=== PATIENT | female | born 1955 | race Caucasian/White ===

== ENCOUNTER 2019-01-27 06:17 | Inpatient (IN) | payer MEDICARE, MEDICAID ==
[~2019-01-27] VITALS: Ht 170.2 cm; Wt 57.1 kg
[2019-01-27] VITALS (27 sets, daily range): BP systolic 112–175; BP diastolic 50–82
[~2019-01-27 06:17] MED LIST: ALBU18HF2 IH; AMIT100T61 PO; BUSP10TA10 PO; CALC-1197 PO; CHOL100044 PO; CYCL10TA10 PO; CYCL1DRO EACHEYE; DOCU-28 PO; FERR325T39 PO; FLUT16SP2 BOTHNARES; HYDR-4353 PO; LEVO100T PO; MONT10TA21 PO; MSC30T PO; OMEP40CA13 PO; RANI150C4 PO; SUCR1TAB PO; SUMA100T PO; TRAZ-219 PO; VENL150C2 PO; cefazolin/dext.iso 2gm/100 ML IV ONE; famotidine 20mg tablet PO ONE; ringers solution, lacted 1,000 ML IV SCH
[2019-01-27 08:51] LABS: BASOPHILS # (AUTO) 0.1 X10'3 (0-0.2); BASOPHILS % (AUTO) 1.2 % (0-1); EOSINOPHILS # (AUTO) 0.1 X10'3 (0-0.9); EOSINOPHILS % (AUTO) 1.2 % (0-6); LYMPHOCYTES # (AUTO) 1.8 X10'3 (1.1-4.8); LYMPHOCYTES % (AUTO) 40.5 % (21-51); MEAN CORPUSCULAR HEMOGLOBIN 32.1 PG (27.0-31.0); MEAN CORPUSCULAR HGB CONC 33.2 g/dL (33.0-36.5); MEAN CORPUSCULAR VOLUME 96.8 FL (78-98); MEAN PLATELET VOLUME 6.4 FL (7.4-10.4); MONOCYTES # (AUTO) 0.3 X10'3 (0-0.9); MONOCYTES % (AUTO) 7.7 % (2-12); NEUTROPHILS # (AUTO) 2.2 X10'3 (1.8-7.7); NEUTROPHILS % (AUTO) 49.4 % (42-75); PRE OP HEMATOCRIT 39.1 % (35.0-45.0); PRE OP PLATELET COUNT 328 X10'3 (140-440); RED BLOOD COUNT 4.04 X10'6 (4.20-5.60); RED CELL DISTRIBUTION WIDTH 13.5 % (11.5-14.5)
[2019-01-27 09:14] LABS: ALBUMIN 3.4 G/DL (3.4-5.0); ALBUMIN/GLOBULIN RATIO 0.8 (1.1-1.5); ALKALINE PHOSPHATASE 53 IU/L (46-116); BLOOD UREA NITROGEN 19 MG/DL (7-18); BUN/CREATININE RATIO 35.8 (6.6-38.0); CALCIUM 9.3 MG/DL (8.5-10.1); CHLORIDE 107 MMOL/L (99-107); CREATININE 0.53 MG/DL (0.40-0.90); PRE OP ALT 42 U/L (30-65); PRE OP ANION GAP 6 (8-16); PRE OP AST 29 U/L (10-37); PRE OP BILIRUB, TOTAL 0.3 MG/DL (0.0-1.0); PRE OP GLUCOSE 75 MG/DL (70-104); PRE OP POTASSIUM 4.3 MMOL/L (3.4-5.1); PRE OP SODIUM 141 MMOL/L (135-145); TOTAL CARBON DIOXIDE 28.3 MMOL/L (24-32); TOTAL PROTEIN 7.5 G/DL (6.4-8.2); eGFR > 90 ML/MIN
[2019-01-27 09:28] LABS: PRE OP PROTIME 9.9 SECONDS (9.0-12.0)
[2019-01-27 09:44] LABS: HEMOGLOBIN A1C 5.1 % (4.5-6.2)
[2019-01-27] MEDS ORDERED: BUPIVACAINE liposomal/PF 13.3 MG/ML vial IM ONE (09:58)
[2019-01-27] MEDS ORDERED: heparin 10,000 units/1 ML INJ ONE (10:06)
[2019-01-27] MEDS ORDERED: BUPIVAcaine/PF 2.5mg/ml (0.25%) 10ml vial ONE (10:08)
[2019-01-27] MEDS ORDERED: fentaNYL /PF 50mcg/ml 5ml ampule ONE (10:15)
[2019-01-27] MEDS ORDERED: midazolam 2 mg/2 ml injection ONE (10:15)
--- NOTE | 2019-01-27 11:58 | NUR ---
Received from OR via BED, accompanied by Anesthesiologist DR HUBER and report given by Anesthesiologist. PT DROWSY, PAINFUL, ABDOMEN W/FOAM TAPE COVERING INCISION CDI, ZAHEER W/S/S DRAINAGE, CABRERA CATHETER TO GRAVITY DRAINAGE, PAIN MEDICATION GIVEN BY DR ROGERS, SCD'S PLACED, ART LINE TO CM, CXR OBTAINED. Addendum: 01/27/19 at 1235 by Julia Watkins RN Amended: Links added.
[2019-01-27] MEDS ORDERED: ringers solution, lacted 1,000 ML IV SCH (12:08)
[2019-01-27] MEDS ORDERED: ondansetron/PF 4mg/2ml inj IV PRN ×3 (12:10→14:30)
[2019-01-27] MEDS ORDERED: meperidine/PF 25mg/ml syringe IV PRN (12:10)
[2019-01-27] MEDS ORDERED: meperidine/PF 25mg/ml syringe ONE (12:13)
[2019-01-27] MEDS: meperidine/PF 25mg/ml syringe IV PRN ×2 (12:21→13:02)
[2019-01-27] MEDS ORDERED: LIDOcaine 2% (20mg/ml) 5ml vial ONE (12:25)
[2019-01-27] MEDS ORDERED: neostigmine methylsulfate 1 MG/ML 10ml vial ONE (12:25)
[2019-01-27] MEDS ORDERED: dexamethasone sod phosphate 4mg/ml inj. ONE (12:25)
[2019-01-27] MEDS ORDERED: rocuronium 10mg/ml inj IV ONE (12:25)
[2019-01-27] MEDS ORDERED: ondansetron/PF 4mg/2ml inj ONE (12:25)
[2019-01-27] MEDS ORDERED: propofol inj 20 ML IV ONE (12:25)
[2019-01-27] MEDS ORDERED: glycopyrrolate 0.2mg/ml inj ONE (12:25)
[2019-01-27] MEDS: morphine 4 MG/ML inj SYRINge IV PRN ×4 (12:36→12:57)
[2019-01-27] MEDS ORDERED: ketorolac trometh. 30mg/ml inj. IV ONE (13:10)
[2019-01-27] MEDS ORDERED: CADD PCA waste documentation MC SCH (13:15)
[2019-01-27] MEDS ORDERED: naloxone 0.4 mg/ml inj IV PRN ×2 (13:15→14:30)
[2019-01-27] MEDS: HYDROmorphone/NS 1 mg/ml CADD 50 ML IV SCH ×6 (13:18→23:00)
--- NOTE | 2019-01-27 13:54 | NUR ---
Received patient report from Recovery nurse Julia DEE. Awaiting arrival to room 347A.
[2019-01-27] MEDS: potassium CL 20mEq in D5-1/2NS 1,000 ML IV SCH (14:27)
[2019-01-27] MEDS ORDERED: HYDROcodone/acetaminophen 5mg/325mg tablet PO PRN (14:30)
[2019-01-27] MEDS ORDERED: CADD PCA waste documentation MC PRN (14:30)
[2019-01-27] MEDS ORDERED: zolpidem 5mg tablet PO PRN (14:30)
--- NOTE | 2019-01-27 14:38 | NUR ---
Report called to receiving nurse. Transferred via BED, 1 BAG OF PERSONAL Belongings SENT W/PT TO ROOM 347A, PTS SISTER HAS PTS GLASSES, BLL, CALL LIGHT GIVEN, SIDE RAILS UPS X2, RECEIVING RN NOTIFIED OF PTS ARRIVAL. Special Issues communicated to receiving nurse. YES. Addendum: 01/27/19 at 1507 by Julia Watkins RN Amended: Links added.
[2019-01-27] MEDS ORDERED: HYDROmorphone/NS 1 mg/ml CADD 50 ML IV SCH (15:00)
[2019-01-27] MEDS ORDERED: ketorolac tromethamine 15mg/ml inj. IV PRN ×2 (17:25→17:35)
[2019-01-27] MEDS: ketorolac tromethamine 15mg/ml inj. IV PRN (17:45)
[2019-01-27] MEDS: ceFAZolin 1GM/D5W- ADD-VANTAGE 50 ML IV SCH (17:45)
--- NOTE | 2019-01-27 18:30 | NUR ---
Problems reprioritized. Patient report given, questions answered & plan of care reviewed with LUIZ Hinkle.
[2019-01-27] MEDS ORDERED: diphenhydrAMINE 25mg capsule PO PRN (18:50)
[2019-01-27] MEDS: albuterol 2.5 MG/3 ML nebule NEB SCH (19:00)
--- NOTE | 2019-01-27 19:22 | NUR ---
Problems reprioritized. Patient report given, questions answered & plan of care reviewed with Ronny DEE.
[2019-01-27] MEDS ORDERED: albuterol 2.5 MG/3 ML nebule NEB PRN (19:35)
[2019-01-27] MEDS ORDERED: fluticasone nasal spray 16GM bottle NS PRN (19:35)
[2019-01-27] MEDS ORDERED: docusate sod 100mg capsule PO PRN (19:35)
[2019-01-27] MEDS ORDERED: HYDROcodone/acetaminophen 10/325mg tab PO PRN (19:35)
[2019-01-27] MEDS ORDERED: SUMAtriptan 25 MG tablet PO PRN (19:35)
[2019-01-27] MEDS: diphenhydrAMINE 50 mg/ml inj IV PRN (19:47)
[2019-01-27] MEDS: LORazepam 2 mg/ml vial IV PRN (19:56)
[2019-01-27] MEDS: cyclobenzaprine 10mg tablet PO SCH (20:00)
[2019-01-27] MEDS: morphine ER 30mg tablet PO SCH (20:00)
--- NOTE | 2019-01-27 20:30 | NUR ---
right after I received report on this patient who was my last patient to get report on, I received a telephone call from the nursing animal shelter supervisor stating that the patient was complaining about itching and wanted her home medications. (During shift report patient called the nursing station saying her IV machine was going off and she could not stand the noise. Immediately a nurse went in and fixed the problem.(IV was not alarming when I went in to introduce myself to patient)She told her she has been neglected since she got here post op. I went in to introduce myself to the patient, she was itching , very anxious, and restless. She was very upset. I told her that I would be happy to call the surgeon and get a Benadryl order, and go over home medications. Patient keeps complaining about how she feels like people walk in and out and that she has not been treated well. I explained that I am sorry about how she felt about her pervious care, and that I wanted to make things right. I also told her I want to get her itching under control, in order to that I need to call the surgeon. I explained her it takes time to get orders so please be patient and that I would make sure she gets Ativan as well. When I arrived with her Benadryl she was on the phone with surgeon saying how nobody had been in her room to care for her. When she got off the phone I informed her that I had explained that it takes time to get orders and to get them processed, and that there was no need to call the surgeon. She told me that she could not trust what I had said previously because of what had gone on the during the prior shift. I explained that she needs to go through nursing staff on the unit instead of calling the surgeon. Benadryl was given and so was Ativan. Patient is resting calmly in no apparent distress. Post op vitals are still being monitored and are within normal limits.
[2019-01-27] MEDS ORDERED: non-formulary drug (Calcium Carbonate/Vitamin D3 (Calcium + D 600 Mg Tablet) 1 EACH) PO SCH (21:00)
[2019-01-27] MEDS: busPIRone 5mg tablet PO SCH (21:00)
[2019-01-27] MEDS ORDERED: non-formulary drug (Trazodone HCl 1 TAB) PO SCH (21:00)
[2019-01-27] MEDS ORDERED: non-formulary drug (Ranitidine HCl 2 CAP) PO SCH (21:00)
[2019-01-27] MEDS: sucralfate 1 gm tablet PO SCH (21:50)
[2019-01-27] MEDS: traZODone 50mg tablet PO SCH (21:50)
[2019-01-27] MEDS: famotidine 20mg tablet PO SCH (21:51)
[2019-01-27] MEDS: pantoprazole 40mg Tablet.DR PO SCH (21:54)
[2019-01-27] MEDS: vitamin D (cholecalciferol) 1,000 unit tablet PO SCH (21:54)
[2019-01-27] MEDS: amitriptyline 50mg tablet PO SCH (21:55)
[2019-01-27] MEDS: cycloSPORINE 0.05% ophthalmic emulsion EACHEYE SCH (21:56)
[2019-01-28] MEDS: ceFAZolin 1GM/D5W- ADD-VANTAGE 50 ML IV SCH (00:22)
[2019-01-28] MEDS: HYDROmorphone/NS 1 mg/ml CADD 50 ML IV SCH ×12 (01:00→23:00)
[2019-01-28] MEDS: potassium CL 20mEq in D5-1/2NS 1,000 ML IV SCH ×4 (01:03→23:29)
[2019-01-28 01:15] VITALS: BP 128/63
--- NOTE | 2019-01-28 02:45 | NUR ---
Patient is awake and eating jello. I asked her if she was ready to get up and walked and she refused. I educated her on the importance of walking after surgery. She still refused to walk. I let her know that I was going to get her up and walking between 0400 and 0500. She agreed to that.
[2019-01-28] MEDS: ketorolac tromethamine 15mg/ml inj. IV PRN ×4 (03:23→17:45)
--- NOTE | 2019-01-28 04:21 | NUR ---
Administered at 0421, scanned but forgot to save. Yecenia DEE witnessed partial dose waste as well.
[2019-01-28] MEDS: LORazepam 2 mg/ml vial IV PRN ×3 (05:54→21:49)
[2019-01-28 05:57] LABS: BASOPHILS % (AUTO) 0.1 % (0-1); EOSINOPHILS # (AUTO) 0.1 X10'3 (0-0.9); EOSINOPHILS % (AUTO) 1.2 % (0-6); HEMATOCRIT 34.3 % (35.0-45.0); HEMOGLOBIN 11.5 g/dl (12.0-16.0); LYMPHOCYTES % (AUTO) 12.3 % (21-51); MEAN CORPUSCULAR HEMOGLOBIN 32.5 PG (27.0-31.0); MEAN CORPUSCULAR HGB CONC 33.6 g/dL (33.0-36.5); MEAN CORPUSCULAR VOLUME 96.6 FL (78-98); MONOCYTES # (AUTO) 0.2 X10'3 (0-0.9); MONOCYTES % (AUTO) 2.9 % (2-12); NEUTROPHILS # (AUTO) 6.8 X10'3 (1.8-7.7); NEUTROPHILS % (AUTO) 83.5 % (42-75); PLATELET COUNT 305 X10'3 (140-440); RED BLOOD COUNT 3.55 X10'6 (4.20-5.60); RED CELL DISTRIBUTION WIDTH 13.5 % (11.5-14.5); WHITE BLOOD COUNT 8.1 X10'3 (4.5-11.0)
[2019-01-28 06:06] LABS: ALBUMIN 2.5 G/DL (3.4-5.0); ANION GAP 7 (8-16); BLOOD UREA NITROGEN 7 MG/DL (7-18); BUN/CREATININE RATIO 13.5 (6.6-38.0); CALCIUM 6.6 MG/DL (8.5-10.1); CHLORIDE 97 MMOL/L (99-107); CREATININE 0.52 MG/DL (0.40-0.90); GLUCOSE 124 MG/DL (70-104); POTASSIUM 3.2 MMOL/L (3.5-5.1); SODIUM 132 MMOL/L (135-145); TOTAL CARBON DIOXIDE 28.2 MMOL/L (24-32); eGFR > 90 ML/MIN
--- NOTE | 2019-01-28 06:32 | NUR ---
While going over eMAR with on coming nurse the Ativan time showed that I had given the medication. So it did scan after all.
--- NOTE | 2019-01-28 06:34 | NUR ---
Problems reprioritized. Patient report given, questions answered & plan of care reviewed with LUIZ Schneider.
[2019-01-28 07:00] VITALS: BP 106/60
[2019-01-28] MEDS: albuterol 2.5 MG/3 ML nebule NEB SCH ×4 (07:00→19:46)
[2019-01-28] MEDS: morphine ER 30mg tablet PO SCH ×2 (08:00→19:47)
[2019-01-28] MEDS: cyclobenzaprine 10mg tablet PO SCH ×2 (08:00→19:47)
[2019-01-28] MEDS: montelukast 10mg tablet PO SCH (08:51)
[2019-01-28] MEDS: vitamin D (cholecalciferol) 1,000 unit tablet PO SCH ×3 (08:51→19:51)
[2019-01-28] MEDS: pantoprazole 40mg Tablet.DR PO SCH ×2 (08:51→19:48)
[2019-01-28] MEDS: levoTHYROXINE 100mcg tablet PO SCH (08:51)
[2019-01-28] MEDS: busPIRone 5mg tablet PO SCH ×3 (08:51→19:49)
[2019-01-28] MEDS: calcium carbonate/vitamin D3 tablet PO SCH ×3 (08:52→17:45)
[2019-01-28] MEDS: sucralfate 1 gm tablet PO SCH ×2 (08:52→19:47)
[2019-01-28] MEDS: ferrous sulfate 325mg tablet PO SCH (08:52)
[2019-01-28] MEDS: venlafaxine XR 75mg capsule (Q24H) PO SCH (08:52)
[2019-01-28] MEDS: cycloSPORINE 0.05% ophthalmic emulsion EACHEYE SCH ×3 (10:12→20:15)
[2019-01-28 11:00] VITALS: BP 109/50
[2019-01-28] MEDS: diphenhydrAMINE 50 mg/ml inj IV PRN ×2 (11:10→15:10)
[2019-01-28] MEDS ORDERED: potassium Cl 20 mEq SR tablet PO PRN (16:35)
[2019-01-28] MEDS ORDERED: potassium CL 10mEq/100ml bag 100 ML IV PRN (16:35)
[2019-01-28] MEDS ORDERED: magnesium Cl slow-release 64mg tablet PO PRN (16:35)
[2019-01-28] MEDS ORDERED: magnesium 4gm in 100ml NS 100 ML IV PRN (16:35)
[2019-01-28] MEDS: potassium Cl 20 mEq SR tablet PO PRN ×2 (16:47→21:45)
--- NOTE | 2019-01-28 18:35 | NUR ---
Patient in room [facility] 355. I have received report from Jennie DEE and had the opportunity to ask questions and assume patient care.
--- NOTE | 2019-01-28 18:38 | NUR ---
Problems reprioritized. Patient report given, questions answered & plan of care reviewed with PEGGY DEE.
[2019-01-28 19:00] VITALS: BP 124/76
[2019-01-28] MEDS: famotidine 20mg tablet PO SCH (19:50)
[2019-01-28] MEDS: amitriptyline 50mg tablet PO SCH (19:50)
[2019-01-28] MEDS: traZODone 50mg tablet PO SCH (19:50)
--- NOTE | 2019-01-28 19:54 | NUR ---
Patient states she does not like anything and so does not want anything. Addendum: 01/28/19 at 5 by Saskia Nails RN Amended: Links added.
[2019-01-29] VITALS: BP 94/47
[2019-01-29] MEDS: HYDROmorphone/NS 1 mg/ml CADD 50 ML IV SCH ×4 (01:00→07:00)
--- NOTE | 2019-01-29 02:36 | NUR ---
Patient refused to use Addendum: 01/29/19 at 0238 by Saskia Nails RN Amended: Links added.
--- NOTE | 2019-01-29 06:00 | NUR ---
Patient upset with this nurse at beginning of shift as I excused myself from her room when post-op patient wheeled by. Patient is very demanding of time, and tries to control and has no appreciation of the fact that she is not the only patient here. When trying to explain situations and work with her, pt. states that she already knows and that staff are just mean. All nighttime meds given ahead of time in order to appease her.
--- NOTE | 2019-01-29 06:06 | NUR ---
Rivera Santana RN
[2019-01-29 06:19] LABS: BASOPHILS % (AUTO) 0.1 % (0-1); EOSINOPHILS # (AUTO) 0.1 X10'3 (0-0.9); EOSINOPHILS % (AUTO) 2.2 % (0-6); HEMATOCRIT 32.2 % (35.0-45.0); LYMPHOCYTES # (AUTO) 0.8 X10'3 (1.1-4.8); LYMPHOCYTES % (AUTO) 17.2 % (21-51); MEAN CORPUSCULAR HEMOGLOBIN 33.1 PG (27.0-31.0); MEAN CORPUSCULAR HGB CONC 34.1 g/dL (33.0-36.5); MEAN CORPUSCULAR VOLUME 97.2 FL (78-98); MEAN PLATELET VOLUME 6.8 FL (7.4-10.4); MONOCYTES # (AUTO) 0.4 X10'3 (0-0.9); MONOCYTES % (AUTO) 7.7 % (2-12); NEUTROPHILS # (AUTO) 3.4 X10'3 (1.8-7.7); NEUTROPHILS % (AUTO) 72.8 % (42-75); PLATELET COUNT 286 X10'3 (140-440); RED BLOOD COUNT 3.31 X10'6 (4.20-5.60); RED CELL DISTRIBUTION WIDTH 13.5 % (11.5-14.5); WHITE BLOOD COUNT 4.7 X10'3 (4.5-11.0)
[2019-01-29 06:33] LABS: ALBUMIN 2.6 G/DL (3.4-5.0); ANION GAP 5 (8-16); BLOOD UREA NITROGEN 3 MG/DL (7-18); CALCIUM 7.6 MG/DL (8.5-10.1); CHLORIDE 104 MMOL/L (99-107); CREATININE 0.43 MG/DL (0.40-0.90); GLUCOSE 125 MG/DL (70-104); SODIUM 136 MMOL/L (135-145); TOTAL CARBON DIOXIDE 27.5 MMOL/L (24-32); eGFR > 90 ML/MIN
--- NOTE | 2019-01-29 06:55 | NUR ---
Patient in room [facility] 355. I have received report from Saskia DEE and had the opportunity to ask questions and assume patient care.
[2019-01-29 07:00] VITALS: BP 136/76
[2019-01-29] MEDS: albuterol 2.5 MG/3 ML nebule NEB SCH ×4 (07:37→19:53)
[2019-01-29] MEDS: vitamin D (cholecalciferol) 1,000 unit tablet PO SCH ×3 (08:54→20:21)
[2019-01-29] MEDS: ferrous sulfate 325mg tablet PO SCH (08:54)
[2019-01-29] MEDS: pantoprazole 40mg Tablet.DR PO SCH ×2 (08:54→20:19)
[2019-01-29] MEDS: morphine ER 30mg tablet PO SCH ×2 (08:54→20:19)
[2019-01-29] MEDS: venlafaxine XR 75mg capsule (Q24H) PO SCH (08:54)
[2019-01-29] MEDS: montelukast 10mg tablet PO SCH (08:55)
[2019-01-29] MEDS: cyclobenzaprine 10mg tablet PO SCH ×2 (08:55→20:19)
[2019-01-29] MEDS: levoTHYROXINE 100mcg tablet PO SCH (08:55)
[2019-01-29] MEDS: busPIRone 5mg tablet PO SCH ×3 (08:55→20:20)
[2019-01-29] MEDS: calcium carbonate/vitamin D3 tablet PO SCH ×3 (08:55→17:35)
[2019-01-29] MEDS: sucralfate 1 gm tablet PO SCH ×2 (08:55→20:19)
[2019-01-29] MEDS: potassium CL 20mEq in D5-1/2NS 1,000 ML IV SCH ×3 (09:01→22:27)
--- NOTE | 2019-01-29 10:00 | NUR ---
Lulú DEE reported to me and to the charge nurse Shana that patient is complaining of being ignored of her needs. She also told Lulú DEE that she never saw her nurse coming in her room. I've been seeing this patient to give her meds, check the Dilaudid CADD setting, etc. and we have the charge nurse also attending her needs when she called and I am not around. I ordered 2 ice cream from the kitchen per patient request. When I got to her room, patient was talking to me calmly and thanking me for attending her needs
[2019-01-29 11:00] VITALS: BP 123/53
[2019-01-29] MEDS: ketorolac tromethamine 15mg/ml inj. IV PRN (13:52)
--- NOTE | 2019-01-29 15:29 | NUR ---
Patient just had shower. Patient's right IJ catheter was wrapped and also her left upper abdomen surgical incision site plus ZAHEER drain.
--- NOTE | 2019-01-29 18:24 | NUR ---
Patient in room [facility]. I have received report from Max DEE and had the opportunity to ask questions and assume patient care.
[2019-01-29 18:30] VITALS: BP 103/56
--- NOTE | 2019-01-29 18:38 | NUR ---
Problems reprioritized. Patient report given, questions answered & plan of care reviewed with Saskia DEE.
[2019-01-29] MEDS: cycloSPORINE 0.05% ophthalmic emulsion EACHEYE SCH (20:18)
[2019-01-29] MEDS: traZODone 50mg tablet PO SCH (20:20)
[2019-01-29] MEDS: amitriptyline 50mg tablet PO SCH (20:21)
[2019-01-29] MEDS: famotidine 20mg tablet PO SCH (20:21)
[2019-01-29] MEDS: LORazepam 2 mg/ml vial IV PRN (20:31)
[2019-01-30 00:34] VITALS: BP 104/64
[2019-01-30] MEDS: HYDROcodone/acetaminophen 10/325mg tab PO PRN ×3 (04:29→17:50)
[2019-01-30] MEDS: potassium CL 20mEq in D5-1/2NS 1,000 ML IV SCH ×2 (04:30→14:27)
[2019-01-30] MEDS: ketorolac tromethamine 15mg/ml inj. IV PRN (04:49)
--- NOTE | 2019-01-30 05:25 | NUR ---
During the day shift yesterday Addendum: 01/30/19 at 0526 by Saskia Nails RN Amended: Links added.
[2019-01-30 06:22] LABS: BASOPHILS % (AUTO) 0.2 % (0-1); EOSINOPHILS # (AUTO) 0.2 X10'3 (0-0.9); EOSINOPHILS % (AUTO) 5.4 % (0-6); HEMATOCRIT 32.2 % (35.0-45.0); HEMOGLOBIN 10.9 g/dl (12.0-16.0); LYMPHOCYTES # (AUTO) 1.3 X10'3 (1.1-4.8); LYMPHOCYTES % (AUTO) 35.9 % (21-51); MEAN CORPUSCULAR HGB CONC 33.8 g/dL (33.0-36.5); MEAN CORPUSCULAR VOLUME 97.6 FL (78-98); MEAN PLATELET VOLUME 7.1 FL (7.4-10.4); MONOCYTES # (AUTO) 0.2 X10'3 (0-0.9); MONOCYTES % (AUTO) 6.4 % (2-12); NEUTROPHILS # (AUTO) 1.8 X10'3 (1.8-7.7); NEUTROPHILS % (AUTO) 52.1 % (42-75); PLATELET COUNT 308 X10'3 (140-440); RED CELL DISTRIBUTION WIDTH 13.5 % (11.5-14.5); WHITE BLOOD COUNT 3.5 X10'3 (4.5-11.0)
[2019-01-30 06:27] LABS: ALBUMIN 2.6 G/DL (3.4-5.0); ANION GAP 4 (8-16); BLOOD UREA NITROGEN 3 MG/DL (7-18); BUN/CREATININE RATIO 6.4 (6.6-38.0); CALCIUM 7.5 MG/DL (8.5-10.1); CHLORIDE 102 MMOL/L (99-107); CREATININE 0.47 MG/DL (0.40-0.90); GLUCOSE 85 MG/DL (70-104); POTASSIUM 4.3 MMOL/L (3.5-5.1); SODIUM 135 MMOL/L (135-145); TOTAL CARBON DIOXIDE 28.7 MMOL/L (24-32); eGFR > 90 ML/MIN
--- NOTE | 2019-01-30 06:30 | NUR ---
Problems reprioritized. Patient report given, questions answered & plan of care reviewed with Violeta Caro.
[2019-01-30] MEDS: albuterol 2.5 MG/3 ML nebule NEB SCH ×4 (06:59→19:00)
[2019-01-30 08:00] VITALS: BP 162/85
[2019-01-30] MEDS: montelukast 10mg tablet PO SCH (09:11)
[2019-01-30] MEDS: levoTHYROXINE 100mcg tablet PO SCH (09:12)
[2019-01-30] MEDS: ferrous sulfate 325mg tablet PO SCH (09:12)
[2019-01-30] MEDS: pantoprazole 40mg Tablet.DR PO SCH ×2 (09:12→20:10)
[2019-01-30] MEDS: busPIRone 5mg tablet PO SCH ×3 (09:12→21:38)
[2019-01-30] MEDS: calcium carbonate/vitamin D3 tablet PO SCH ×3 (09:12→17:49)
[2019-01-30] MEDS: sucralfate 1 gm tablet PO SCH ×2 (09:12→20:10)
[2019-01-30] MEDS: morphine ER 30mg tablet PO SCH ×2 (09:12→20:10)
[2019-01-30] MEDS: cyclobenzaprine 10mg tablet PO SCH ×2 (09:12→20:10)
[2019-01-30] MEDS: vitamin D (cholecalciferol) 1,000 unit tablet PO SCH ×3 (09:13→21:38)
[2019-01-30] MEDS: LORazepam 2 mg/ml vial IV PRN ×2 (10:03→21:38)
[2019-01-30] MEDS: cycloSPORINE 0.05% ophthalmic emulsion EACHEYE SCH ×2 (10:04→20:10)
[2019-01-30] MEDS: venlafaxine XR 75mg capsule (Q24H) PO SCH (10:04)
[2019-01-30 11:00] VITALS: BP 139/75
--- NOTE | 2019-01-30 16:57 | NUR ---
Nutrition consult: Per consult pt reports only 10" of bowel and has chronic diarrhea. Pt seen at bedside with friend present reports multiple GI surgeries with the first one being in the year 1999 however pt unable to recall when her other bowel surgeries were and states that she only has 10" left of intestines. 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 Pt provided with thorough written and verbal diarrhea and low fiber nutrition therapy educations with a list of fiber content in foods. Pt also provided with written and verbal education for s/s of electrolyte depletion and recipes for electrolyte repletion. Pt presented with moments of understanding education followed by inability to comprehend education. All of patient's questions were answered at this time. RD contact information provided and encouraged pt/friend to reach out if they have any additional questions. Pt reports no diarrhea during hospital stay. LBM 01/29. Pt with multiple food requests that were d/w dietary, see below. Pt denies true allergy to dairy, states she just gets a stomach ache or headache sometimes when eaten. Pt reports some difficulty swallowing solid food at times and is agreeable to [facility], ST consulted. Pt s/p splenectomy currently on full liquid diet with poor PO intake. Will continue to follow. Recommendations: 1) Advance to low residue diet as medically indicated 2) [place] food preferences: 2 coffee, 2 cream, 2 Splenda, oatmeal and soy milk with breakfast; 2 ice cream TID; DISLIKES broth, hot tea, and does not want hot water 3) Wt per rx Addendum: 01/30/19 at [address] Amended: Links added.
[2019-01-30] MEDS: diphenhydrAMINE 50 mg/ml inj IV PRN (17:50)
[2019-01-30 19:00] VITALS: BP 129/50
[2019-01-30] MEDS: amitriptyline 50mg tablet PO SCH (21:38)
[2019-01-30] MEDS: traZODone 50mg tablet PO SCH (21:38)
[2019-01-30] MEDS: famotidine 20mg tablet PO SCH (21:38)
[2019-01-31] VITALS: BP 118/57
[2019-01-31] MEDS: HYDROcodone/acetaminophen 10/325mg tab PO PRN ×2 (03:15→12:08)
[2019-01-31] MEDS: ketorolac tromethamine 15mg/ml inj. IV PRN (05:28)
[2019-01-31 05:57] LABS: BASOPHILS % (AUTO) 0.4 % (0-1); EOSINOPHILS # (AUTO) 0.2 X10'3 (0-0.9); EOSINOPHILS % (AUTO) 5.8 % (0-6); HEMATOCRIT 32.4 % (35.0-45.0); LYMPHOCYTES # (AUTO) 1.4 X10'3 (1.1-4.8); LYMPHOCYTES % (AUTO) 33.7 % (21-51); MEAN CORPUSCULAR HEMOGLOBIN 32.8 PG (27.0-31.0); MEAN CORPUSCULAR HGB CONC 33.8 g/dL (33.0-36.5); MEAN CORPUSCULAR VOLUME 96.9 FL (78-98); MEAN PLATELET VOLUME 6.8 FL (7.4-10.4); MONOCYTES # (AUTO) 0.4 X10'3 (0-0.9); MONOCYTES % (AUTO) 9.3 % (2-12); NEUTROPHILS # (AUTO) 2.1 X10'3 (1.8-7.7); NEUTROPHILS % (AUTO) 50.8 % (42-75); PLATELET COUNT 355 X10'3 (140-440); RED BLOOD COUNT 3.34 X10'6 (4.20-5.60); RED CELL DISTRIBUTION WIDTH 13.2 % (11.5-14.5); WHITE BLOOD COUNT 4.2 X10'3 (4.5-11.0)
--- NOTE | 2019-01-31 06:10 | NUR ---
Patient in room [facility]. I have received report from LUIZ Ortiz and had the opportunity to ask questions and assume patient care.
[2019-01-31 06:30] LABS: ALBUMIN 2.5 G/DL (3.4-5.0); ANION GAP 7 (8-16); BLOOD UREA NITROGEN 4 MG/DL (7-18); CALCIUM 8.5 MG/DL (8.5-10.1); CHLORIDE 103 MMOL/L (99-107); GLUCOSE 88 MG/DL (70-104); POTASSIUM 4.2 MMOL/L (3.5-5.1); SODIUM 139 MMOL/L (135-145); TOTAL CARBON DIOXIDE 28.6 MMOL/L (24-32); eGFR > 90 ML/MIN
--- NOTE | 2019-01-31 06:32 | NUR ---
Problems reprioritized. Patient report given, questions answered & plan of care reviewed with Arnaza Zelaya. Addendum: 01/31/19 at 0632 by Diana Cueto RN Amended: Links added.
[2019-01-31] MEDS: albuterol 2.5 MG/3 ML nebule NEB SCH ×2 (06:48→11:00)
[2019-01-31 07:00] VITALS: BP 123/48
[2019-01-31] MEDS: levoTHYROXINE 100mcg tablet PO SCH (08:24)
[2019-01-31] MEDS: montelukast 10mg tablet PO SCH (08:24)
[2019-01-31] MEDS: busPIRone 5mg tablet PO SCH ×2 (08:25→12:04)
[2019-01-31] MEDS: cyclobenzaprine 10mg tablet PO SCH (08:25)
[2019-01-31] MEDS: morphine ER 30mg tablet PO SCH (08:25)
[2019-01-31] MEDS: venlafaxine XR 75mg capsule (Q24H) PO SCH (08:25)
[2019-01-31] MEDS: pantoprazole 40mg Tablet.DR PO SCH (08:25)
[2019-01-31] MEDS: sucralfate 1 gm tablet PO SCH (08:25)
[2019-01-31] MEDS: calcium carbonate/vitamin D3 tablet PO SCH ×2 (08:25→12:04)
[2019-01-31] MEDS: ferrous sulfate 325mg tablet PO SCH (08:25)
[2019-01-31] MEDS: cycloSPORINE 0.05% ophthalmic emulsion EACHEYE SCH (08:25)
[2019-01-31] MEDS: vitamin D (cholecalciferol) 1,000 unit tablet PO SCH ×2 (08:25→12:04)
[2019-01-31 11:00] VITALS: BP 94/52
--- NOTE | 2019-01-31 15:21 | NUR ---
Patient discharge home via family and taken from unit via wheelchair with x1 staff. Patient alert, oriented and in no apparent distress at time of discharge. PIV removed with cannula intact. Patient took all belongings with her including discharge instructions. Patient was given time for questions and answers and after, stated an understanding of the instructions. Patient is going to make a follow up appointment with Dr. Draper. No new prescriptions written for patient.
== END 2019-01-31 15:15 | disposition home or self-care (01) | DRG 799 ==
LOC: PAS IN 06:17 → EDSTATUS 09:15 → SUR 3N 17:25
PROVIDERS: ADMIT Surgery; ATTEND Surgery
PROC: 02HV33Z Insertion of Infusion Device into Superior Vena Cava, Percutaneous Approach (ICD-10-PCS; 2019-01-27)
PROC: 3E0T3BZ Introduction of Anesthetic Agent into Peripheral Nerves and Plexi, Percutaneous Approach (ICD-10-PCS; 2019-01-27)
PROC: 07TP0ZZ Resection of Spleen, Open Approach (ICD-10-PCS; principal; 2019-01-27 10:15)
DX: D73.4 Cyst of spleen (principal); E43 Unspecified severe protein-calorie malnutrition; Z68.1 Body mass index [BMI] 19.9 or less, adult; L29.9 Pruritus, unspecified; I10 Essential (primary) hypertension; J45.909 Unspecified asthma, uncomplicated; M79.7 Fibromyalgia; F41.9 Anxiety disorder, unspecified; G89.29 Other chronic pain; Z90.49 Acquired absence of other specified parts of digestive tract; Z90.710 Acquired absence of both cervix and uterus
CPT/HCPCS: 36415; 71045; 76937; 80048; 80053; 83036; 84443; 85025; 85610; 85730; 88305; 88341; 88342; 93005; 94640; 94760; A4618; A6449; A7000; C1758; C9290; G0378; J0690; J1100; J1170; J1200; J1644; J1885; J2001; J2060; J2175; J2250; J2270; J2405; J2704; J2710; J3010; J3480; J3490; J7040; J7120

== ENCOUNTER 2019-04-03 07:27 | Inpatient (IN) | payer MEDICARE, MEDICAID ==
[2019-03-27 11:06] LABS: BASOPHILS # (AUTO) 0.1 X10'3 (0-0.2); EOSINOPHILS % (AUTO) 0.2 % (0-6); LYMPHOCYTES # (AUTO) 1.5 X10'3 (1.1-4.8); MEAN CORPUSCULAR HEMOGLOBIN 33.1 PG (27.0-31.0); MEAN CORPUSCULAR HGB CONC 33.7 g/dL (33.0-36.5); MEAN CORPUSCULAR VOLUME 98.1 FL (78-98); MEAN PLATELET VOLUME 6.6 FL (7.4-10.4); MONOCYTES # (AUTO) 0.7 X10'3 (0-0.9); MONOCYTES % (AUTO) 8.6 % (2-12); NEUTROPHILS # (AUTO) 5.7 X10'3 (1.8-7.7); NEUTROPHILS % (AUTO) 71.2 % (42-75); PRE OP HEMATOCRIT 38.7 % (35.0-45.0); PRE OP PLATELET COUNT 474 X10'3 (140-440); RED BLOOD COUNT 3.94 X10'6 (4.20-5.60); RED CELL DISTRIBUTION WIDTH 13.6 % (11.5-14.5)
[2019-03-27 11:19] LABS: PRE OP INR 0.9 INR
[2019-03-27 11:29] LABS: ALBUMIN 3.6 G/DL (3.4-5.0); ALBUMIN/GLOBULIN RATIO 0.8 (1.1-1.5); ALKALINE PHOSPHATASE 75 IU/L (46-116); BLOOD UREA NITROGEN 11 MG/DL (7-18); BUN/CREATININE RATIO 15.5 (6.6-38.0); CALCIUM 8.6 MG/DL (8.5-10.1); CHLORIDE 102 MMOL/L (99-107); CREATININE 0.71 MG/DL (0.40-0.90); PRE OP ALT 35 U/L (30-65); PRE OP ANION GAP 7 (8-16); PRE OP AST 25 U/L (10-37); PRE OP BILIRUB, TOTAL 0.2 MG/DL (0.0-1.0); PRE OP GLUCOSE 88 MG/DL (70-104); PRE OP POTASSIUM 4.3 MMOL/L (3.4-5.1); PRE OP SODIUM 137 MMOL/L (135-145); TOTAL CARBON DIOXIDE 27.6 MMOL/L (24-32); TOTAL PROTEIN 8.3 G/DL (6.4-8.2); eGFR 83 ML/MIN
--- NOTE | 2019-04-02 09:07 | NUR ---
CALLED AND SPOKE WITH PT TO REMIND HER OF HER SURGERY TIME FOR 04-03-19. PT STATED SHE DIDN'T UNDERSTAND WHY SHE HAD TO SHOWER SO MANY TIMES AND APPLY MUPIROCIN OINTMENT IN HER NARES "I'VE NEVER HAD TO DO THIS BEFORE" EXPLAINED TO PT RE: INFECTION PREVENTION PROTOCOL PER ORTHOPEDIC SURGEON'S REQUEST AND THAT IT WAS IN HER BEST INTEREST PT STATED SHE WOULD COMPLY BUT SHE IS UNABLE TO WASH AND REACH HER BACK COMPLETLY. TOLD PT TO DO THE BEST SHE COULD. ALL OTHER QUESTIONS ANSWERED.
[2019-04-03] VITALS (24 sets, daily range): BP systolic 97–144; BP diastolic 36–74
[~2019-04-03] VITALS: Ht 170.2 cm; Wt 59.0 kg
[~2019-04-03 07:27] MED LIST changes: +ACYC-202 PO; +BECL7.3A INH; -CALC-1197 PO; +CALC-910 PO; -CHOL100044 PO; -CYCL1DRO EACHEYE; +DICL100G15 TOP; +DIPH25CA83 PO; +ELET20TA PO; -FERR325T39 PO; +LACT10SO PO; -RANI150C4 PO; -SUMA100T PO; +VANCOMYCIN INJ 1000 MG in NORMAL SALINE 250ml IV.SOLN IV ONE; +albuterol 2.5 MG/3 ML nebule NEB ONE; -cefazolin/dext.iso 2gm/100 ML IV ONE; +cefazolin/dext.iso 2gm/50ml 50 ML IV ONE; +tranexamic acid inj. 600 MG in normal saline 100ml IV soln 100 ML IV ONE
--- NOTE | 2019-04-03 08:40 | NUR ---
RUDY 65. PT ASYMPTOMATIC. DR CUEVAS NOTIFIED, INSTRUCTED TO GIVE PT ONE CUP APPLE JUICE. SEE RUDY RESULTS FOR POST TESTING Addendum: 04/03/19 at 0945 by Emely Forrest RN Amended: Links added.
--- NOTE | 2019-04-03 10:07 | NUR ---
I have reviewed and agree with all medications administered and interventions performed by RAIL SWITCH OPERATOR Student Moy Chavez.
[2019-04-03] MEDS ORDERED: ROPIVAcaine 0.5% (5mg/ml) 30ml vial ONE ×2 (11:58→12:25)
[2019-04-03] MEDS ORDERED: ketorolac trometh. 30mg/ml inj. ONE (11:58)
[2019-04-03] MEDS ORDERED: sevoflurane 250ml liquid IH ONE (12:21)
[2019-04-03] MEDS ORDERED: MIDAZolam 5mg/5ml vial ONE (12:23)
[2019-04-03] MEDS ORDERED: fentaNYL/PF 50MCG/1 ML 2ML syringe ONE (12:23)
[2019-04-03] MEDS ORDERED: ringers solution, lacted 1,000 ML IV SCH (13:33)
[2019-04-03] MEDS ORDERED: proCHLORperazine 10 MG/2 ml inj IV PRN (13:35)
[2019-04-03] MEDS ORDERED: morphine 4 MG/ML inj SYRINge IV PRN ×2 (13:35)
[2019-04-03] MEDS ORDERED: ondansetron/PF 4mg/2ml inj IV PRN ×2 (13:35→15:40)
[2019-04-03] MEDS ORDERED: meperidine/PF 25mg/ml syringe IV PRN ×3 (13:35)
[2019-04-03] MEDS ORDERED: propofol inj 20 ML IV ONE (14:43)
--- NOTE | 2019-04-03 15:32 | NUR ---
Received from OR via ortho bed, accompanied by Anesthesiologist FAITH and report given by Anesthesiolgist. Pt sleepy but responsive to questions, VS stable O2 mask at 10L, 20G right forearm 100cc/hr, left shoulder in sling, jacky and ON-Q dressings with ice pack present. Good cap refill to fingers, patient states she is not in pain besides sore throat. SCDs placed on patient.
[2019-04-03] MEDS ORDERED: diphenhydrAMINE 25mg capsule PO PRN (15:40)
[2019-04-03] MEDS ORDERED: HYDROcodone/acetaminophen 10/325mg tab PO PRN (15:40)
[2019-04-03] MEDS ORDERED: acyclovir 200 MG capsule PO PRN (15:40)
[2019-04-03] MEDS ORDERED: docusate sod 100mg capsule PO PRN (15:40)
[2019-04-03] MEDS ORDERED: acetaminophen 325mg tablet PO PRN (15:40)
[2019-04-03] MEDS ORDERED: magnesium hydroxide 30ml (MOM) UD suspension PO PRN (15:40)
[2019-04-03] MEDS ORDERED: bisacodyl 10mg suppository rectal RC PRN (15:40)
[2019-04-03] MEDS ORDERED: HYDROmorphone inj. 0.5 MG/0.5 ML DISP.SYRIN IV PRN (15:40)
[2019-04-03] MEDS ORDERED: oxyCODONE IR 5mg (immed. release) tablet PO PRN (15:40)
[2019-04-03] MEDS ORDERED: SUMAtriptan 25 MG tablet PO PRN (16:05)
[2019-04-03] MEDS: ROPIVAcaine 0.2%/PF PUMP/bolus 550 ML INTERSCALE SCH (16:08)
--- NOTE | 2019-04-03 16:25 | NUR ---
Patient in room PAS IN 900. I have received report from Renetta DEE and had the opportunity to ask questions and assume patient care.
--- NOTE | 2019-04-03 16:32 | NUR ---
Report called to receiving nurse LUIZ Corona. Transferred via Belongings sent with patient on bed, glasses in chart. Special Issues communicated to receiving nurse. Pt settled into room, BLL, call light within reach, chart at nurses desk. Still no pain to shoulder but very sore throat, ice chips given. Cool pack remains present to left shoulder. VS stable.
--- NOTE | 2019-04-03 16:40 | NUR ---
Requested bedside RN Cj to check blood sugar per phonecall from Dr Dove.
[2019-04-03] MEDS: ceFAZolin 1GM/D5W- ADD-VANTAGE 50 ML IV SCH ×2 (16:54→23:59)
[2019-04-03] MEDS: potassium cl 20mEq in 1/2 NS 1,000 ML IV SCH ×2 (16:54→23:37)
--- NOTE | 2019-04-03 18:29 | NUR ---
Problems reprioritized. Patient report given, questions answered & plan of care reviewed with Mao RN.
[2019-04-03] MEDS ORDERED: tranexamic acid inj. 600 MG in normal saline 100ml IV soln 100 ML IV ONE (18:40)
[2019-04-03] MEDS ORDERED: vancomycin/NS 1 GM ADD-VANTAGE 250 ML IV SCH (20:00)
[2019-04-03] MEDS: sucralfate 1 gm tablet PO SCH (20:00)
[2019-04-03] MEDS: budesonide 0.5mg/2ml UD nebule IH SCH (20:06)
[2019-04-03] MEDS: morphine ER 30mg tablet PO SCH (20:21)
[2019-04-03] MEDS: acetaminophen 325mg tablet PO SCH (20:21)
[2019-04-03] MEDS: cyclobenzaprine 10mg tablet PO SCH (20:21)
[2019-04-03] MEDS: sennosides 8.6mg tablet PO SCH (20:22)
[2019-04-03] MEDS: diphenhydrAMINE 25mg capsule PO PRN (20:24)
[2019-04-03] MEDS: busPIRone 5mg tablet PO SCH (20:25)
[2019-04-03] MEDS: lactulose 20gm/30ml cup PO SCH (20:25)
[2019-04-03] MEDS: amitriptyline 50mg tablet PO SCH (20:29)
[2019-04-03] MEDS: traZODone 50mg tablet PO PRN (21:29)
[2019-04-04 02:00] VITALS: BP 112/53
[2019-04-04] MEDS: HYDROmorphone 1 mg/ml syringe IV PRN ×2 (02:24→13:37)
[2019-04-04] MEDS: acetaminophen 325mg tablet PO SCH ×4 (02:30→19:06)
[2019-04-04] MEDS: diphenhydrAMINE 25mg capsule PO PRN ×3 (02:42→19:35)
[2019-04-04] MEDS: ROPIVAcaine 0.2%/PF PUMP/bolus 550 ML INTERSCALE SCH (03:04)
[2019-04-04] MEDS: oxyCODONE IR 5mg (immed. release) tablet PO PRN ×6 (04:39→23:33)
[2019-04-04 06:00] VITALS: BP 104/49
--- NOTE | 2019-04-04 06:09 | NUR ---
Problems reprioritized. Patient report given, questions answered & plan of care reviewed with Cj DEE.
--- NOTE | 2019-04-04 06:27 | NUR ---
Patient in room ORTHO 4016. I have received report from Mao DEE and had the opportunity to ask questions and assume patient care.
[2019-04-04 06:28] LABS: BASOPHILS % (AUTO) 0.3 % (0-1); EOSINOPHILS # (AUTO) 0.1 X10'3 (0-0.9); EOSINOPHILS % (AUTO) 1.9 % (0-6); HEMATOCRIT 31.6 % (35.0-45.0); HEMOGLOBIN 10.9 g/dl (12.0-16.0); LYMPHOCYTES # (AUTO) 1.1 X10'3 (1.1-4.8); LYMPHOCYTES % (AUTO) 14.8 % (21-51); MEAN CORPUSCULAR HEMOGLOBIN 33.4 PG (27.0-31.0); MEAN CORPUSCULAR HGB CONC 34.4 g/dL (33.0-36.5); MEAN CORPUSCULAR VOLUME 97.3 FL (78-98); MEAN PLATELET VOLUME 6.6 FL (7.4-10.4); MONOCYTES # (AUTO) 0.3 X10'3 (0-0.9); MONOCYTES % (AUTO) 4.1 % (2-12); NEUTROPHILS # (AUTO) 5.7 X10'3 (1.8-7.7); NEUTROPHILS % (AUTO) 78.9 % (42-75); PLATELET COUNT 324 X10'3 (140-440); RED BLOOD COUNT 3.25 X10'6 (4.20-5.60); RED CELL DISTRIBUTION WIDTH 13.5 % (11.5-14.5); WHITE BLOOD COUNT 7.2 X10'3 (4.5-11.0)
[2019-04-04 06:32] LABS: ANION GAP 8 (8-16); CHLORIDE 106 MMOL/L (99-107); POTASSIUM 3.5 MMOL/L (3.5-5.1); SODIUM 139 MMOL/L (135-145); TOTAL CARBON DIOXIDE 25.4 MMOL/L (24-32)
[2019-04-04] MEDS: levoTHYROXINE 100mcg tablet PO SCH (07:30)
[2019-04-04] MEDS: pantoprazole 40mg Tablet.DR PO SCH (07:30)
[2019-04-04] MEDS: sucralfate 1 gm tablet PO SCH ×2 (07:30→19:05)
[2019-04-04] MEDS: cyclobenzaprine 10mg tablet PO SCH ×2 (07:30→19:05)
[2019-04-04] MEDS: lactulose 20gm/30ml cup PO SCH ×3 (07:31→19:31)
[2019-04-04] MEDS: montelukast 10mg tablet PO SCH (07:31)
[2019-04-04] MEDS: venlafaxine XR 75mg capsule (Q24H) PO SCH (07:31)
[2019-04-04] MEDS: busPIRone 5mg tablet PO SCH ×3 (07:31→19:35)
[2019-04-04] MEDS: morphine ER 30mg tablet PO SCH ×2 (07:31→19:06)
[2019-04-04] MEDS: fluticasone nasal spray 16GM bottle NS SCH (07:32)
[2019-04-04] MEDS: potassium cl 20mEq in 1/2 NS 1,000 ML IV SCH ×3 (07:32→19:43)
[2019-04-04] MEDS: aspirin 325mg tablet PO SCH (08:03)
[2019-04-04 10:00] VITALS: BP 99/46
[2019-04-04] MEDS: budesonide 0.5mg/2ml UD nebule IH SCH ×2 (10:20→19:18)
[2019-04-04] MEDS: albuterol 2.5 MG/3 ML nebule NEB PRN (10:20)
[2019-04-04 14:00] VITALS: BP 122/56
--- NOTE | 2019-04-04 14:49 | NUR ---
Pt s/p revision left TSA currently on a regular diet documented with 25% PO intake not meeting nutrient needs. Pt seen at bedside provided with written and verbal protein education with alternative write in menu to provide additional food options. Pt reports poor PO intake r/t not liking the food. Food preferences obtained, pt states she doesn't eat meat or fish and requests vegetarian diet however states that eggs are okay. Pt reports difficulty swallowing d/t sore throat and agrees to soft to chew foods. Pt requests 2 sorbet TID, cream of wheat or oatmeal with coffee at all breakfasts, and requests no butter, ice tea, rice, pudding, or gravy. All food preferences were d/w dietary and RN informed about patient requesting mostly vegetarian diet with the exception of eggs. Pt provided with RD contact information. Will continue to follow. Addendum: 04/04/19 at [address] Amended: Links added.
[2019-04-04 18:00] VITALS: BP 105/61
--- NOTE | 2019-04-04 18:09 | NUR ---
Problems reprioritized. Patient report given, questions answered & plan of care reviewed with luba DEE.
[2019-04-04] MEDS: sennosides 8.6mg tablet PO SCH (19:06)
--- NOTE | 2019-04-04 19:10 | NUR ---
Patient had loose stool so I held the Senokot that was ordered.
[2019-04-04] MEDS: amitriptyline 50mg tablet PO SCH (19:35)
--- NOTE | 2019-04-04 20:47 | NUR ---
placed hat in bathroom to measure urine. pt refused to use. removed. SL IVF b/c patient drank 2 pitchers of water. positioned for comfort. pt c/o pain 10/10 while eating ice cream and carrying on conversation. pain routine given to pt. and written on board when next dose due. verbalized understanding. pt allowed ice pack on outside of arm only no pressure on arm
[2019-04-04] MEDS: traZODone 50mg tablet PO PRN (23:32)
[2019-04-04 23:35] VITALS: BP 116/53
[2019-04-05] MEDS: acetaminophen 325mg tablet PO SCH ×3 (02:00→14:36)
[2019-04-05] MEDS: oxyCODONE IR 5mg (immed. release) tablet PO PRN ×5 (05:24→21:10)
[2019-04-05 06:00] VITALS: BP 116/51
--- NOTE | 2019-04-05 06:07 | NUR ---
reported to days. noted pt received pre-pt pain meds.
--- NOTE | 2019-04-05 06:10 | NUR ---
received report from angelica hendricks
[2019-04-05] MEDS: potassium cl 20mEq in 1/2 NS 1,000 ML IV SCH (07:37)
[2019-04-05] MEDS: levoTHYROXINE 100mcg tablet PO SCH (08:11)
[2019-04-05] MEDS: aspirin 325mg tablet PO SCH (08:11)
[2019-04-05] MEDS: pantoprazole 40mg Tablet.DR PO SCH (08:11)
[2019-04-05] MEDS: montelukast 10mg tablet PO SCH (08:12)
[2019-04-05] MEDS: cyclobenzaprine 10mg tablet PO SCH ×2 (08:12→20:09)
[2019-04-05] MEDS: morphine ER 30mg tablet PO SCH ×2 (08:12→20:08)
[2019-04-05] MEDS: venlafaxine XR 75mg capsule (Q24H) PO SCH (08:13)
[2019-04-05] MEDS: busPIRone 5mg tablet PO SCH ×3 (08:13→20:10)
[2019-04-05] MEDS: fluticasone nasal spray 16GM bottle NS SCH (08:15)
[2019-04-05] MEDS: lactulose 20gm/30ml cup PO SCH ×3 (08:16→20:09)
[2019-04-05] MEDS: albuterol 2.5 MG/3 ML nebule NEB PRN (08:27)
[2019-04-05] MEDS: budesonide 0.5mg/2ml UD nebule IH SCH ×2 (08:27→20:25)
[2019-04-05] MEDS: sucralfate 1 gm tablet PO SCH ×2 (08:34→20:09)
[2019-04-05 10:00] VITALS: BP 107/41
[2019-04-05] MEDS: ROPIVAcaine 0.2%/PF PUMP/bolus 550 ML INTERSCALE SCH (13:15)
[2019-04-05] MEDS ORDERED: acetaminophen 325mg tablet PO PRN (15:40)
[2019-04-05] MEDS: diphenhydrAMINE 25mg capsule PO PRN (17:02)
[2019-04-05 18:00] VITALS: BP 113/70
--- NOTE | 2019-04-05 18:11 | NUR ---
gave report to august,
[2019-04-05] MEDS: amitriptyline 50mg tablet PO SCH (20:09)
[2019-04-05] MEDS: sennosides 8.6mg tablet PO SCH (20:09)
[2019-04-05 22:00] VITALS: BP 118/47
[2019-04-05] MEDS: traZODone 50mg tablet PO PRN (23:06)
[2019-04-06] MEDS: oxyCODONE IR 5mg (immed. release) tablet PO PRN ×3 (05:23→13:05)
[2019-04-06 06:00] VITALS: BP 101/46
--- NOTE | 2019-04-06 06:04 | NUR ---
received report from dejuan, rn
[2019-04-06 06:45] VITALS: BP 101/46
[2019-04-06 06:45] LABS: BASOPHILS % (AUTO) 0.4 % (0-1); EOSINOPHILS # (AUTO) 0.3 X10'3 (0-0.9); EOSINOPHILS % (AUTO) 6.1 % (0-6); HEMOGLOBIN 10.5 g/dl (12.0-16.0); LYMPHOCYTES % (AUTO) 34.4 % (21-51); MEAN CORPUSCULAR HEMOGLOBIN 33.3 PG (27.0-31.0); MEAN CORPUSCULAR HGB CONC 33.9 g/dL (33.0-36.5); MEAN CORPUSCULAR VOLUME 98.2 FL (78-98); MEAN PLATELET VOLUME 6.9 FL (7.4-10.4); MONOCYTES # (AUTO) 0.4 X10'3 (0-0.9); MONOCYTES % (AUTO) 7.7 % (2-12); NEUTROPHILS # (AUTO) 2.9 X10'3 (1.8-7.7); NEUTROPHILS % (AUTO) 51.4 % (42-75); PLATELET COUNT 284 X10'3 (140-440); RED BLOOD COUNT 3.15 X10'6 (4.20-5.60); RED CELL DISTRIBUTION WIDTH 13.4 % (11.5-14.5); WHITE BLOOD COUNT 5.7 X10'3 (4.5-11.0)
[2019-04-06] MEDS: budesonide 0.5mg/2ml UD nebule IH SCH ×2 (08:00→08:14)
[2019-04-06] MEDS: pantoprazole 40mg Tablet.DR PO SCH (08:26)
[2019-04-06] MEDS: fluticasone nasal spray 16GM bottle NS SCH (08:26)
[2019-04-06] MEDS: busPIRone 5mg tablet PO SCH ×2 (08:26→13:05)
[2019-04-06] MEDS: lactulose 20gm/30ml cup PO SCH ×2 (08:27→13:06)
[2019-04-06] MEDS: venlafaxine XR 75mg capsule (Q24H) PO SCH (08:27)
[2019-04-06] MEDS: aspirin 325mg tablet PO SCH (08:27)
[2019-04-06] MEDS: sucralfate 1 gm tablet PO SCH (08:27)
[2019-04-06] MEDS: morphine ER 30mg tablet PO SCH (08:27)
[2019-04-06] MEDS: cyclobenzaprine 10mg tablet PO SCH (08:27)
[2019-04-06] MEDS: montelukast 10mg tablet PO SCH (08:27)
[2019-04-06] MEDS: levoTHYROXINE 100mcg tablet PO SCH (08:27)
--- NOTE | 2019-04-06 08:28 | NUR ---
computer turned off in the middle of med pass and unable to recover barcodes that had been scanned, checked meds prior to admin
[2019-04-06 10:15] VITALS: BP 111/52
[2019-04-06] MEDS ORDERED: ASPI-1 PO (10:48)
--- NOTE | 2019-04-06 14:31 | NUR ---
pt d/c with instructions, understanding of instructions, and w/all belongings in wheelchair accompanied by daughter to private vehicle to go home and f/u w/dr. turcios, pt has appointment already scheduled
== END 2019-04-06 14:20 | disposition home health service (06) | DRG 483 ==
LOC: PAS IN 07:27 → EDSTATUS 10:30 → ORTHO 4S 16:34
PROVIDERS: ADMIT Orthopaedic Surgery; ATTEND Orthopaedic Surgery
PROC: 0RPK0JZ Removal of Synthetic Substitute from Left Shoulder Joint, Open Approach (ICD-10-PCS; 2019-04-03)
PROC: 3E0T3BZ Introduction of Anesthetic Agent into Peripheral Nerves and Plexi, Percutaneous Approach (ICD-10-PCS; 2019-04-03)
PROC: 0RRK0JZ Replacement of Left Shoulder Joint with Synthetic Substitute, Open Approach (ICD-10-PCS; principal; 2019-04-03 12:21)
DX: T84.098A Other mechanical complication of other internal joint prosthesis, initial encounter (principal); D62 Acute posthemorrhagic anemia; M75.122 Complete rotator cuff tear or rupture of left shoulder, not specified as traumatic; M25.512 Pain in left shoulder; M75.02 Adhesive capsulitis of left shoulder; F32.9 Major depressive disorder, single episode, unspecified; K21.9 Gastro-esophageal reflux disease without esophagitis; G43.909 Migraine, unspecified, not intractable, without status migrainosus; F41.9 Anxiety disorder, unspecified; Z96.612 Presence of left artificial shoulder joint; G89.29 Other chronic pain; E03.9 Hypothyroidism, unspecified; J45.909 Unspecified asthma, uncomplicated; Y79.2 Prosthetic and other implants, materials and accessory orthopedic devices associated with adverse incidents; Y92.89 Other specified places as the place of occurrence of the external cause; Z88.8 Allergy status to other drugs, medicaments and biological substances; Z90.710 Acquired absence of both cervix and uterus; Z79.899 Other long term (current) drug therapy; Z79.84 Long term (current) use of oral hypoglycemic drugs
CPT/HCPCS: 36415; 80051; 80053; 82948; 84443; 85025; 85610; 85730; 87081; 94640; 94760; 97110; 97112; 97116; 97161; 97530; A4565; A4618; A7000; C1776; G0378; J0690; J1170; J1885; J2250; J2704; J2795; J3010; J3370; J3480; J7120; J7626; Q0163

== ENCOUNTER 2022-07-16 09:20 | Emergency (ER) | payer MEDICARE, MEDICAID ==
[~2022-07-16] VITALS: Ht 170.2 cm; Wt 61.4 kg
[~2022-07-16 09:20] MED LIST changes: +ACYC-128 PO; -ACYC-202 PO; +ASPI-1 PO; +CYCL-524 PO; -CYCL10TA10 PO; -LACT10SO PO; +LACT10SO3 PO; -OMEP40CA13 PO; +OMEP40CA21 PO; -TRAZ-219 PO; +TRAZ-256 PO; -VANCOMYCIN INJ 1000 MG in NORMAL SALINE 250ml IV.SOLN IV ONE; -VENL150C2 PO; +VENL150C4 PO; -albuterol 2.5 MG/3 ML nebule NEB ONE; -cefazolin/dext.iso 2gm/50ml 50 ML IV ONE; -famotidine 20mg tablet PO ONE; -ringers solution, lacted 1,000 ML IV SCH; -tranexamic acid inj. 600 MG in normal saline 100ml IV soln 100 ML IV ONE
[2022-07-16 10:03] VITALS: BP 125/56
--- NOTE | 2022-07-16 12:22 | NUR ---
Patient refuses to have bed railing up despite her ongoing dizziness. She states, "I promise I wont get up".
[2022-07-16] MEDS ORDERED: acetaminophen 325mg tablet PO ONE (13:15)
== END 2022-07-16 14:43 | disposition home or self-care (01) ==
LOC: ER 09:23
DX: S06.0X0A Concussion without loss of consciousness, initial encounter (principal); M54.2 Cervicalgia; R07.89 Other chest pain; J45.909 Unspecified asthma, uncomplicated; K21.9 Gastro-esophageal reflux disease without esophagitis; G89.29 Other chronic pain; M54.50 Low back pain, unspecified; Z88.8 Allergy status to other drugs, medicaments and biological substances; Z91.010 Allergy to peanuts; Z91.018 Allergy to other foods; Z90.710 Acquired absence of both cervix and uterus; Z56.0 Unemployment, unspecified; W01.0XXA Fall on same level from slipping, tripping and stumbling without subsequent striking against object, initial encounter; Y93.89 Activity, other specified; Y92.89 Other specified places as the place of occurrence of the external cause; Y99.8 Other external cause status
CPT/HCPCS: 70450; 71045; 72125; 99284

== ENCOUNTER 2024-03-31 08:50 | Outpatient (CLI) | payer MEDICARE, MEDICAID ==
[2024-03-24 09:30] LABS: ALBUMIN 3.1 G/DL (3.4-5.0); BLOOD UREA NITROGEN 28 MG/DL (7-18); BUN/CREATININE RATIO 29.5 (10.0-20.0); CALCIUM 9.3 MG/DL (8.5-10.1); CREATININE 0.95 MG/DL (0.40-0.90); GLUCOSE 96 MG/DL (70-104); TOTAL CARBON DIOXIDE 24.4 MMOL/L (24-32); eGFR 58 ML/MIN
[2024-03-24 10:17] LABS: ANION GAP 8 (8-16); CHLORIDE 106 MMOL/L (99-107); SODIUM 138 MMOL/L (135-145)
[2024-03-24 10:19] LABS: POTASSIUM 4.5 MMOL/L (3.5-5.1)
[~2024-03-31 08:50] MED LIST changes: -AMIT100T61 PO; +AMIT100T76 PO; +MONT-47 PO; -MONT10TA21 PO; -VENL150C4 PO; +VENL150C5 PO
[2024-03-31] MEDS ORDERED: iohexol 300mg/ml 100ml inj. ONE (09:29)
== END 2024-03-31 23:59 | disposition home or self-care (01) ==
LOC: RAD 08:50
PROVIDERS: ATTEND Colon & Rectal Surgery
DX: N28.1 Cyst of kidney, acquired (principal); K59.04 Chronic idiopathic constipation; M43.16 Spondylolisthesis, lumbar region; Z90.49 Acquired absence of other specified parts of digestive tract; M43.8X4 Other specified deforming dorsopathies, thoracic region; I70.0 Atherosclerosis of aorta; R19.5 Other fecal abnormalities
CPT/HCPCS: 36415; 74177; 80048; Q9967